=== PATIENT | male | born 1950 | race Caucasian/White ===

== ENCOUNTER 2017-08-20 16:39 | Inpatient (IN) | payer OTHER ==
[2017-08-20] VITALS (11 sets, daily range): BP systolic 120–145; BP diastolic 74–94
[~2017-08-20] VITALS: Ht 180.3 cm; Wt 95.5 kg
[~2017-08-20 16:39] MED LIST: GLYBURIDE5 MG PO; LANTUS 10100 UNITS/ SC; METFORMIN HCL500 MG PO; METOCLOPRAMIDE H5 MG PO; OMEPRAZOLE40 M1 PO
[2017-08-20 17:08] LABS: BASOPHIL (%) 0.3 % (0-1); EOSINOPHIL (%) 0.1 % (0-5); HEMOGLOBIN 15.7 G/DL (12.5-16.6); IMMATURE GRANULOCYTE (%) 0.3 % (0.0-0.7); LYMPHOCYTE (%) 12.7 % (15-42); LYMPHOCYTE COUNT 1.6 K/uL (1.0-2.8); MCH 31.5 PG (29.0-34.0); MCHC 34.1 G/DL (30.0-36.0); MCV 92.4 FL (86-99); MONOCYTE (%) 9.8 % (3-12); MONOCYTE COUNT 1.2 K/uL (0-0.8); NEUTROPHIL (%) 76.8 % (45-76); NEUTROPHIL COUNT 9.5 K/uL (1.8-6.4); PLATELET COUNT 198 K/uL (156-360); RBC DIS.WIDTH-CV 12.1 % (11.8-14.6); RBC DIS.WIDTH-SD 41.2 % (39-53); RED BLOOD COUNT 4.98 M/uL (4.00-5.50); WHITE BLOOD COUNT 12.4 K/uL (4.1-10.2)
[2017-08-20 17:23] LABS: AMYLASE 22 IU/L (1-118); CHLORIDE 101 mEq/L (99-109); POTASSIUM 3.5 mEq/L (3.7-5.4); SODIUM 144 mEq/L (136-147)
[2017-08-20 17:24] LABS: GLUCOSE 256 mg/dL (70-99)
[2017-08-20 17:27] LABS: SERUM ETHYL ALCOHOL < 10 mg/dL
[2017-08-20 17:28] LABS: CREATININE 1.7 mg/dL (0.6-1.3); GFR ESTIMATE (CALCULATED) 43 mL/min/ (58.99-99999)
[2017-08-20 17:29] LABS: UREA NITROGEN (BUN) 20 mg/dL (9-23)
[2017-08-20 17:31] LABS: LIPASE 18 U/L (1.0-51.0)
[2017-08-20 17:34] LABS: TROP-I INTERPRETATION POSITIVE
[2017-08-20 17:35] LABS: INTER. NORMALIZED RATIO 1.1
[2017-08-20 17:57] LABS: TROPONIN-I 38.27 ng/mL (0.0-0.30)
[2017-08-21] VITALS (17 sets, daily range): BP systolic 104–147; BP diastolic 64–86
[2017-08-21 01:27] LABS: TROP-I INTERPRETATION POSITIVE
[2017-08-21 01:49] LABS: TROPONIN-I 115.53 ng/mL (0.0-0.30)
[2017-08-21 05:26] LABS: BASOPHIL (%) 0.2 % (0-1); EOSINOPHIL (%) 0 % (0-5); HEMATOCRIT 41.8 % (38.0-50.0); HEMOGLOBIN 14.2 G/DL (12.5-16.6); IMMATURE GRANULOCYTE (%) 0.4 % (0.0-0.7); LYMPHOCYTE (%) 5.3 % (15-42); LYMPHOCYTE COUNT 0.8 K/uL (1.0-2.8); MCH 31.8 PG (29.0-34.0); MCV 93.5 FL (86-99); MONOCYTE (%) 10.8 % (3-12); MONOCYTE COUNT 1.6 K/uL (0-0.8); NEUTROPHIL (%) 83.3 % (45-76); NEUTROPHIL COUNT 12.5 K/uL (1.8-6.4); PLATELET COUNT 175 K/uL (156-360); RBC DIS.WIDTH-SD 41.6 % (39-53); RED BLOOD COUNT 4.47 M/uL (4.00-5.50)
[2017-08-21 05:54] LABS: CHLORIDE 99 MEQ/L (99-109); CREATININE 1.7 MG/DL (0.6-1.3); GFR ESTIMATE (CALCULATED) 43 mL/min/ (58.99-99999); GLUCOSE 288 mg/dL (70-99); HDL CHOLESTEROL 35 MG/DL (Desirable>=40); LDL CHOLESTEROL 91 mg/dL (Desirable<100); NON-HDL CHOLESTEROL 111 mg/dL (Desirable<160); POTASSIUM 3.9 MEQ/L (3.7-5.4); SODIUM 136 MEQ/L (136-147); TOTAL CHOLESTEROL 146 mg/dL (Desirable<200); TRIGLYCERIDES 100 MG/DL (Normal: <150); UREA NITROGEN (BUN) 21 mg/dL (9-23)
[2017-08-21 06:13] LABS: TROP-I INTERPRETATION POSITIVE; TROPONIN-I 163.38 ng/mL (0.0-0.30)
[2017-08-21 10:32] LABS: HEMOGLOBIN A1c (GLYCOHEMOGLOB) 8.9 % (Below 5.7)
[2017-08-21 13:11] LABS: TROP-I INTERPRETATION POSITIVE
[2017-08-21] MEDS ORDERED: TAMSULOSIN HCL0.4 MG PO (15:26)
[2017-08-21 20:34] LABS: TROPONIN-I 155.02 ng/mL (0.0-0.30)
[2017-08-21 20:35] LABS: TROP-I INTERPRETATION POSITIVE
[2017-08-22 01:05] VITALS: BP 129/73
[2017-08-22 04:30] VITALS: BP 108/61
[2017-08-22 05:26] LABS: BASOPHIL (%) 0.3 % (0-1); EOSINOPHIL (%) 0.1 % (0-5); HEMATOCRIT 40.3 % (38.0-50.0); HEMOGLOBIN 13.5 G/DL (12.5-16.6); IMMATURE GRANULOCYTE (%) 0.6 % (0.0-0.7); LYMPHOCYTE (%) 8.5 % (15-42); LYMPHOCYTE COUNT 1.3 K/uL (1.0-2.8); MCH 31.1 PG (29.0-34.0); MCHC 33.5 G/DL (30.0-36.0); MCV 92.9 FL (86-99); MONOCYTE (%) 9.3 % (3-12); MONOCYTE COUNT 1.4 K/uL (0-0.8); NEUTROPHIL (%) 81.2 % (45-76); NEUTROPHIL COUNT 12.5 K/uL (1.8-6.4); PLATELET COUNT 166 K/uL (156-360); RBC DIS.WIDTH-SD 41.5 % (39-53); RED BLOOD COUNT 4.34 M/uL (4.00-5.50); WHITE BLOOD COUNT 15.3 K/uL (4.1-10.2)
[2017-08-22 05:50] LABS: ALKALINE PHOSPHATASE 58 IU/L (3-129); ALT (GPT) 32 IU/L (3-49); AST (GOT) 110 IU/L (2-34); CHLORIDE 102 MEQ/L (99-109); GFR ESTIMATE (CALCULATED) 36 mL/min/ (58.99-99999); GLUCOSE 191 mg/dL (70-99); POTASSIUM 3.7 MEQ/L (3.7-5.4); SODIUM 139 MEQ/L (136-147); TOTAL BILIRUBIN 1.3 MG/DL (0.0-1.0); TOTAL PROTEIN 5.6 G/DL (6.4-8.3); UREA NITROGEN (BUN) 30 mg/dL (9-23)
[2017-08-22 09:06] VITALS: BP 103/62
[2017-08-22 11:02] VITALS: BP 103/62
[2017-08-22 15:49] VITALS: BP 117/82
[2017-08-22] MEDS ORDERED: ATORVASTATIN CA40 MG PO (17:44)
[2017-08-22] MEDS ORDERED: ASPIR-LOW81 MG PO (17:44)
[2017-08-22] MEDS ORDERED: LOSARTAN POTASS25 MG PO (17:44)
[2017-08-22] MEDS ORDERED: LOPRESSOR25 MG PO (17:44)
[2017-08-22] MEDS ORDERED: BRILINTA90 MG PO (17:44)
[2017-08-22 19:27] VITALS: BP 122/79
== END 2017-08-22 21:31 | disposition home or self-care (01) | DRG 280 ==
LOC: EME 16:39 → CATH 17:00 → ENRESERV 17:30 → 4WEST 18:10 → 4EAST 18:10 → 4WEST 18:11 → ENRESERV 08-21 23:41 → 4EAST 08-22 01:05
PROVIDERS: Emergency Medicine Emergency Medical Services; Internal Medicine; Internal Medicine Cardiovascular Disease
DX: I21.21 ST elevation (STEMI) myocardial infarction involving left circumflex coronary artery (principal); I21.19 ST elevation (STEMI) myocardial infarction involving other coronary artery of inferior wall; I25.82 Chronic total occlusion of coronary artery; I50.23 Acute on chronic systolic (congestive) heart failure; I25.119 Atherosclerotic heart disease of native coronary artery with unspecified angina pectoris; Z95.5 Presence of coronary angioplasty implant and graft; E78.5 Hyperlipidemia, unspecified; E11.65 Type 2 diabetes mellitus with hyperglycemia; E11.29 Type 2 diabetes mellitus with other diabetic kidney complication; K21.9 Gastro-esophageal reflux disease without esophagitis; N40.0 Benign prostatic hyperplasia without lower urinary tract symptoms; N28.9 Disorder of kidney and ureter, unspecified; I25.2 Old myocardial infarction
CPT/HCPCS: 80048; 80053; 80061; 81003; 82150; 82948; 83036; 83690; 84484; 85025; 85610; 85730; 86850; 86900; 86901; 87641; 93005; 93306; 94799; 99281; 99284; C1769; C1887; G0480; J1644; J1815; J2250; J2405; J3010

== ENCOUNTER → 2017-11-05 | Outpatient (CLI) | payer OTHER ==
[~2017-11-05] MED LIST changes: +ASPIR-LOW81 MG PO; +ATORVASTATIN CA40 MG PO; +BRILINTA90 MG PO; +LOPRESSOR25 MG PO; +LOSARTAN POTASS25 MG PO; +TAMSULOSIN HCL0.4 MG PO
== END | disposition home or self-care (01) ==
LOC: NUC 09:09
DX: R94.39 Abnormal result of other cardiovascular function study (principal)
CPT/HCPCS: 78452; 93017; A9500; J2785

== ENCOUNTER → 2017-11-12 | Outpatient (CLI) | payer OTHER | END | disposition home or self-care (01) | LOC: NUC 08:16 | DX: R94.39 Abnormal result of other cardiovascular function study (principal) | CPT/HCPCS: 78452; 78999; A9505 ==